=== PATIENT | female | born 1960 ===

== ENCOUNTER 2018-01-30 12:46 | Emergency (ER) | payer BC ==
[2018-01-30 13:03] VITALS: BP 140/78
--- NOTE | 2018-01-30 13:20 | UC ---
Skin Complaint HPI - HPI Summary HPI Summary: 57 yo female presents with tick bite. She tells me that this morning she found a tick on her right mid back. Her removed it and said it was large. She was outdoors about 3-4 days ago and is unsure how long it was attached to her. She is concerned about lyme disease as she already suffers from dermatomyositis. - History of Current Complaint Chief Complaint: UCSkin Time Seen by Provider: 01/30/18 13:20 Stated Complaint: TICK BITE Hx Obtained From: Patient Hx Last Menstrual Period: na Onset/Duration: Sudden Onset Current Severity: None Pain Intensity: 0 - Allergy/Home Medications Allergies/Adverse Reactions: Allergies Allergy/AdvReac Type Severity Reaction Status Date / Time No Known Allergies Allergy Verified 01/30/18 13:03 Home Medications: Home Medications Alendronate TAB (NF) [Fosamax TAB (NF)] 10 mg PO SEE INSTRUCTIONS 01/30/18 [ History Confirmed 01/30/18] Betamethasone Dip 0.05% ON(NF) [Betamethasone Dipr 0.05% OINT(NF)] 1 applic .SEE ORDER SEE INSTRUCTIONS 01/30/18 [History Confirmed 01/30/18] Hydrocortisone 2.5% CREAM(NF) 1 applic TOPICAL SEE INSTRUCTIONS 01/30/18 [ History Confirmed 01/30/18] Hydroxychloroquine TAB* [Plaquenil TAB*] 300 mg PO DAILY 01/30/18 [History Confirmed 01/30/18] Mycophenolate Mofetil TAB(*) [Cellcept TAB(*)] 500 mg PO Q6HR 01/30/18 [History Confirmed 01/30/18] Omeprazole 40 mg PO DAILY 01/30/18 [History Confirmed 01/30/18] Tacrolimus 0.1% OINT (NF) 1 applic TOPICAL SEE INSTRUCTIONS 01/30/18 [History Confirmed 01/30/18] predniSONE TAB* [Deltasone 10 MG TAB*] 10 mg PO DAILY 01/30/18 [History Confirmed 01/30/18] PMH/Surg Hx/FS Hx/Imm Hx - Additional Past Medical History Additional PMH: dermatomyositis GI/ History: Gastroesophageal Reflux - Surgical History Surgical History: None - Family History Known Family History: Positive: None - Social History Occupation: Employed Full-time Lives: With Family Alcohol Use: None Substance Use Type: None Smoking Status (MU): Never Smoked Tobacco Review of Systems All Other Systems Reviewed And Are Negative: Yes Constitutional: Positive: Negative Skin: Positive: Other - Tick bite right mid back Respiratory: Positive: Negative Cardiovascular: Positive: Negative Neurological: Positive: Negative Psychological: Positive: Negative Physical Exam - Summary Physical Exam Summary: GENERAL: NAD. WDWN. No pain distress. SKIN: RIGHT MID BACK: there is a 7mm diameter of mild erythema and edema with central 1mm area of superficial skin loss. No streaking, bleeding, or drainage. NECK: Supple. Nontender. No lymphadenopathy. CHEST: No accessory muscle use. Breathing comfortably and in no distress. CV: Pulses intact. Cap refill <2seconds NEURO: Alert. PSYCH: Age appropriate behavior. Triage Information Reviewed: Yes Vital Signs: Initial Vital Signs Temp 98.2 F 01/30/18 12:59 Pulse 88 01/30/18 12:59 Resp 18 01/30/18 12:59 BP 140/78 01/30/18 12:59 Pulse Ox 98 01/30/18 12:59 Vital Signs Reviewed: Yes Course/Dx - Course Course Of Treatment: Pt was given 200mg doxycycline in the clinic and we discussed signs and symptoms of lyme disease to monitor for in the next few weeks to months. - Diagnoses Provider Diagnosis: Tick bite Discharge - Sign-Out/Discharge Documenting (check all that apply): Patient Departure All imaging exams completed and their final reports reviewed: No Studies - Discharge Plan Condition: Stable Disposition: HOME Patient Education Materials: Lyme Disease (ED), Tick Bite (ED) Referrals: No Primary Care Phys,NOPCP [Primary Care Provider] - Additional Instructions: If you develop a fever, shortness of breath, chest pain, new or worsening symptoms - please call your PCP or go to the ED. You have been bitten by a tick. Once the tick is removed, these "bites" usually cause no problems. Tick fever, tick paralysis, Seg[place] Spotted fever, and Lyme disease are uncommon -- but you should mention this tick bite to your doctor if you develop unusual symptoms in the next several weeks. If you develop any of the following, please see your physician promptly: (1) Fever, chills, or generalized malaise associated with a headache. (2) A red round area at the site of the bite (or elsewhere) (3) Joint pain, joint swelling or generalized weakness. (4) Redness, swelling, or drainage at the site of the bite. - Billing Disposition and Condition Condition: STABLE Disposition: Home
[2018-01-30] MEDS ORDERED: DOXYcycline CAP(*) 100 MG PO ONE (13:35)
== END 2018-01-30 13:43 | disposition home or self-care (01) ==
LOC: UCEAST 12:46
DX: J02.9 Acute pharyngitis, unspecified (principal); H66.91 Otitis media, unspecified, right ear
CPT/HCPCS: 99202; A9270-GY; G0463